=== PATIENT | female | born 1970 | race Caucasian/White ===

== ENCOUNTER → 2023-10-10 10:26 | Outpatient (REF) | payer BC, SELFPAY ==
[2023-10-10 12:55] LABS: % Basophils 0.8 % (0-2); % Eosinophils 2.7 % (0-6); % Immature Granulocytes 0.2 % (0-0.5); % Monocytes 8.5 % (1.7-9.3); % Neutrophils 61.8 % (42.2-75.2); Absolute Eosinophils 0.1 10^3/uL (0-0.7); Absolute Lymphocytes 1.3 10^3/uL (1.2-3.4); Absolute Monocytes 0.4 10^3/uL (0.1-0.6); Absolute Neutrophils 3.2 10^3/uL (1.4-6.5); Hematocrit 40.6 % (37.0-47.0); Mean Corp Hgb Conc. 34.5 g/dL (33.0-37.0); Mean Corpuscular Hgb 31.8 pg (27.0-31.0); Mean Corpuscular Volume 92.3 fL (81.0-99.0); Mean Platelet Volume 11.5 fL (7.4-10.4); Nucleated Red Blood Cells % 0 %; Platelet Count 269 10^3/uL (130-400); Red Cell Dist. Width 13.4 % (11.5-14.5); White Blood Cell Count 5.2 10^3/uL (4.8-10.8)
[2023-10-10 13:02] LABS: ALT (SGPT) 19 U/L (0-35); AST (SGOT) 23 U/L (14-36); Albumin 4.4 g/dl (3.5-5.0); Alkaline Phosphatase 93 U/L (38-126); Blood Urea Nitrogen 10 mg/dl (7-17); Calcium 9.5 mg/dl (8.4-10.2); Carbon Dioxide 26 mmol/L (22-30); Chloride 104 mmol/L (98-107); Glucose 89 mg/dl (70-99); Iron 97 ug/dl (37-170); Potassium 4.3 mmol/L (3.5-5.1); Sodium 137 mmol/L (135-145); Total Bilirubin 0.7 mg/dl (0.2-1.3); Total Protein 7.2 g/dl (6.3-8.2); eGFR > 60.00
[2023-10-10 13:11] LABS: Percent Saturation 25 % (20-50); Total Iron Binding Capacity 378 ug/dl (265-497)
== END ==
LOC: HWLAB 10:26
PROVIDERS: ATTENDING PHYSICIAN Physician Assistant Medical
DX: R06.09 Other forms of dyspnea (principal)
CPT/HCPCS: 36415; 71046; 80053; 83540; 83550; 85025

== ENCOUNTER → 2023-10-11 15:17 | Outpatient (REF) | payer BC, SELFPAY | LOC: RCS 15:17 | PROVIDERS: ATTENDING PHYSICIAN Physician Assistant Medical | DX: R06.09 Other forms of dyspnea (principal) | CPT/HCPCS: 93306 ==

== ENCOUNTER → 2024-03-10 16:58 | Outpatient (REF) | payer OTHER, SELFPAY | LOC: WDC 16:58 | PROVIDERS: ATTENDING PHYSICIAN Obstetrics & Gynecology | DX: Z12.31 Encounter for screening mammogram for malignant neoplasm of breast (principal) | CPT/HCPCS: 77063; 77067 ==